=== PATIENT | male | born 1945 | race Caucasian/White ===

== ENCOUNTER 2019-11-05 04:24 | Inpatient (IN) | payer MEDICARE, OTHER ==
[~2019-11-05] VITALS: Ht 180.3 cm; Wt 67.4 kg
[2019-11-05] MEDS ORDERED: methylPREDNISolone SOD SUCC 125 MG/2 ML VL IV ONE (05:00)
[2019-11-05] MEDS ORDERED: IPRATROPIUM BROM 0.5 MG/2.5ML INH SOL NEB ONE (05:00)
[2019-11-05 05:17] LABS: Basophils # (auto) 0.1 10 ^3/uL (0-0.2); Basophils % (auto) 0.8 % (0.0-2.0); Eosinophils # (auto) 0.5 10 ^3/uL (0-0.8); Eosinophils % (auto) 5.4 % (0.0-7.0); Hematocrit 43.8 % (41.0-53.0); Hemoglobin 14.5 g/dL (13.5-17.5); Lymphocytes # (auto) 1.7 10 ^3/uL (0.4-5.4); Lymphocytes % (auto) 17.6 % (10.0-50.0); Mean Corpuscular Hemoglobin 29.1 pg (28.0-32.0); Mean Corpuscular Hgb Conc. 33.1 g/dL (32.0-36.0); Monocytes # (auto) 0.6 10 ^3/uL (0-1.3); Monocytes % (auto) 6.2 % (0.0-12.0); Neutrophils # (auto) 6.7 10 ^3/uL (1.6-8.6); Platelet Count (auto) 269 10^3/uL (140-450); Red Blood Cells 4.98 10^6/uL (4.5-5.90); Red Cell Distribution Width 13.4 % (11.8-14.3); White Blood Cell 9.5 10^3/uL (4.4-10.8)
[2019-11-05 05:34] LABS: INR 0.97 (0.9-1.15); Partial Thromboplastin Time 23.8 sec (23.64-32.05)
[2019-11-05 05:35] LABS: Albumin 3.3 g/dL (3.4-5.0); Anion Gap 9 (5-15); Blood Urea Nitrogen 23 mg/dL (7-18); Carbon Dioxide 26 mmol/L (21-32); Chloride 100 mmol/L (98-107); Glucose 303 mg/dL (74-106); Magnesium 2.3 mg/dL (1.6-2.6); Potassium 4.1 mmol/L (3.5-5.1); Sodium 135 mmol/L (136-145)
[2019-11-05 05:36] LABS: Lactic Acid w/Reflex 2.7 mmol/L (0.4-2.0)
[2019-11-05 05:39] LABS: Alanine Aminotransferase 23 U/L (16-61); Alkaline Phosphatase 141 U/L (45-117); Aspartate Aminotransferase 17 U/L (15-37); BUN/Creatinine Ratio 26.1; Bilirubin, Total 0.4 mg/dL (0.2-1.0); GFR African American 109 mL/min; GFR Non-African American 90 mL/min; Lactate Dehydrogenase 118 U/L (87-241); Total Protein 7.7 g/dL (6.4-8.2)
[2019-11-05] MEDS ORDERED: SODIUM CHLORIDE 0.9% 1,000 ML IV ONE (06:15)
[2019-11-05] MEDS ORDERED: levoFLOXacin 750MG 150 ML IV ONE (06:15)
[2019-11-05 06:57] LABS: CRP High Sensitivity 4.2 mg/dL (< 0.3)
[2019-11-05] MEDS ORDERED: ONDANSETRON HCL 4 MG/2 ML VIAL IV PRN (07:15)
[2019-11-05] MEDS ORDERED: TEMAZEPAM 15 MG CAP PO PRN (07:15)
[2019-11-05] MEDS ORDERED: NITROGLYCERIN 0.4 MG SL TAB SL PRN (07:15)
[2019-11-05] MEDS ORDERED: MORPHINE SULF INJ 2 MG/ML SYRINGE 1ML IV PRN ×2 (07:15→13:45)
[2019-11-05] MEDS ORDERED: ACETAMINOPHEN 325 MG TAB PO PRN (07:15)
[2019-11-05 08:30] VITALS: BP 137/89
[2019-11-05 09:11] VITALS: BP 137/89
--- NOTE | 2019-11-05 09:11 | NUR ---
Telemetry admit from ER NOMAN MORENO admitted to Telemetry unit after SBAR received. Patient oriented to RICHARD ALCANTAR, primary RN, unit, room, bed, and unit policies regarding patient care and visiting hours. Patient now on continuous telemetry monitoring, tele box # 9 and telemetry reading on arrival to unit is SR. Patient placed on bedside oxygen, weighed by bedscale and encouraged to call if they need something. All questions and concerns addressed, patient verbalized understanding.
[2019-11-05 09:55] VITALS: BP 145/79
[2019-11-05] MEDS ORDERED: methylPREDNISolone SOD SUCC 125 MG/2 ML VL IV SCH (10:00)
[2019-11-05] MEDS ORDERED: CHOLECALCIFEROL (VITD3) 1,000UNIT=25mCg TAB PO SCH (10:00)
[2019-11-05] MEDS ORDERED: ZINC SULFATE 220mg CAP or TAB PO SCH (10:00)
[2019-11-05] MEDS ORDERED: ASCORBIC ACID 1,000 MG TAB PO SCH (10:00)
[2019-11-05] MEDS: FAMOTIDINE 20 MG TAB PO SCH ×2 (11:19→22:53)
[2019-11-05] MEDS: ENOXAPARIN SOD 40 MG/0.4 ML SYRINGE SC SCH (11:19)
[2019-11-05] MEDS: NIFEdipine ER 30 MG TAB PO SCH (11:20)
[2019-11-05] MEDS: DOXYCYCLINE 100MG/250ML 250 ML IV SCH ×2 (11:22→22:52)
[2019-11-05 12:30] VITALS: BP 140/92
[2019-11-05] MEDS ORDERED: DEXTROSE (50%) 50ML SYRG IV PRN (13:15)
[2019-11-05] MEDS: cefTRIAXone 1GM/50ML D5W 50 ML IV SCH (13:26)
[2019-11-05] MEDS ORDERED: ACETAMINOPHEN 500 MG TAB PO PRN (13:45)
[2019-11-05] MEDS ORDERED: HYDROcodone-ACET 5/325MG TAB PO PRN (13:45)
[2019-11-05] MEDS ORDERED: ALBUTEROL SULF HFA 90MCG INH 200DOSE IN SCH (14:00)
[2019-11-05] MEDS: IPRATROPIUM BROM 0.5 MG/2.5ML INH SOL NEB PRN ×2 (16:02→20:33)
[2019-11-05] MEDS: ALBUTEROL SULF 2.5 MG/0.5ML(0.5%) NEB SOLN NEB PRN ×2 (16:02→20:32)
[2019-11-05 17:40] VITALS: BP 126/78
--- NOTE | 2019-11-05 17:50 | NUR ---
Received patient from [facility] via wheelchair Patient transferred to bed. Patient alert and oriented, no s/s of distress or sob. Bed locked in lowest position, side rails up x2, call light within reach. Will continue to monitor.
[2019-11-05] MEDS: ACCU-CHEK COMFORT CURVE STRIP VI SCH ×2 (18:16→22:54)
[2019-11-05] MEDS: InsuLIN REG 1unit/0.01ml Soln (100units/ml) SC SCH ×2 (18:17→23:07)
[2019-11-05] MEDS ORDERED: IOHEXOL 350 MG/ML 100ML IJ ONE ×2 (18:52→20:39)
--- NOTE | 2019-11-05 21:10 | NUR ---
Sent patient to CT. Unable to complete at this time, due to machine not working. Was advised by Tadeo from CT, CT scan will be done in the morning 11/06/2019. Will continue to monitor patient.
[2019-11-05 22:00] VITALS: BP 127/76
[2019-11-06] VITALS (7 sets, daily range): BP systolic 99–119; BP diastolic 61–73
--- NOTE | 2019-11-06 00:43 | NUR ---
Janes Alegria hospitalist of patient requesting cough medication. Awaiting call back or orders.
--- NOTE | 2019-11-06 00:55 | NUR ---
Received orders for cough by hospitalist. Will carry out.
--- NOTE | 2019-11-06 01:48 | NUR ---
During rounding, observed patient is afib on monitor. Confirmed with Photographic Editor Nathaly heart rhythm and rhythm is non sustained 80-130's heart rate, stays mostly in low 100's. Performed vitals: 105/64 bp, 81hr, 97.5 temp, 18 respiratory, 97 o2. Performed EKG and results is atrial fibrillation. Spoke to [facility] and notified him of heart rhythm and rhythm is non sustained 80-130's heart rate, stays mostly in low 100's / vitals: 105/64 bp, 81hr, 97.5 temp, 18 respiratory, 97 o2 / EKG results atrial fibrillation hr 103. [facility] physically reviewed ekg printout and signed it at 0147. [facility] hospitalist gave order to put order in for cardiology consult for new onset of afib, and to continue to monitor heart rate, and blood pressure. read back and confirmed. Addendum: 11/06/19 at 0200 by Paul Gonzalez RN patient verbalizes denial of any SOB, pain, chest pain, or any type of distress at this time. Patient states "I feel fine".
[2019-11-06] MEDS: guaiFENesin-DM 100/10mg/5ml SYR PO PRN ×5 (02:03→22:48)
--- NOTE | 2019-11-06 02:17 | NUR ---
patient verbalizes denial of any SOB, pain, chest pain, or any type of distress at this time. Patient states "I feel ok, i just want to sleep".
[2019-11-06 05:47] LABS: Basophils # (auto) 0 10 ^3/uL (0-0.2); Basophils % (auto) 0.2 % (0.0-2.0); Eosinophils # (auto) 0 10 ^3/uL (0-0.8); Hematocrit 40.1 % (41.0-53.0); Hemoglobin 13.4 g/dL (13.5-17.5); Lymphocytes # (auto) 1.2 10 ^3/uL (0.4-5.4); Lymphocytes % (auto) 11.5 % (10.0-50.0); Mean Corpuscular Hemoglobin 29.2 pg (28.0-32.0); Mean Corpuscular Hgb Conc. 33.5 g/dL (32.0-36.0); Mean Corpuscular Volume 87.2 fL (80.0-100.0); Monocytes # (auto) 0.9 10 ^3/uL (0-1.3); Monocytes % (auto) 7.9 % (0.0-12.0); Neutrophils # (auto) 8.7 10 ^3/uL (1.6-8.6); Neutrophils % (auto) 80.4 % (37.0-80.0); Nucleated Red Blood Cells % 0.1 %; Platelet Count (auto) 279 10^3/uL (140-450); Red Cell Distribution Width 13.6 % (11.8-14.3); White Blood Cell 10.9 10^3/uL (4.4-10.8)
[2019-11-06 06:06] LABS: Potassium 4.1 mmol/L (3.5-5.1)
[2019-11-06] MEDS: ALBUTEROL SULF 2.5 MG/0.5ML(0.5%) NEB SOLN NEB SCH ×3 (06:11→19:40)
[2019-11-06] MEDS: IPRATROPIUM BROM 0.5 MG/2.5ML INH SOL NEB SCH ×3 (06:11→19:40)
[2019-11-06 06:14] LABS: Albumin 2.9 g/dL (3.4-5.0); BUN/Creatinine Ratio 39.1; Bilirubin, Total 0.4 mg/dL (0.2-1.0); Calcium 8.7 mg/dL (8.5-10.1); Total Protein 6.8 g/dL (6.4-8.2)
[2019-11-06] MEDS: ACCU-CHEK COMFORT CURVE STRIP VI SCH ×4 (06:23→21:03)
[2019-11-06] MEDS: InsuLIN REG 1unit/0.01ml Soln (100units/ml) SC SCH ×4 (06:23→22:00)
--- NOTE | 2019-11-06 07:50 | NUR ---
Opening Shift Note Assumed care of patient, awake and alert, sitting up in chair next to bed eating breakfast. Patient took off his NC and when asked about it pt states, "its difficult to eat with it", advised to put it back on when he finished breakfast, or as needed. No S/S of distress/SOB or pain. Instructed on POC and to call for assist PRN, will continue to monitor for changes Q1hr and PRN. Signed: 11/06/19 at 1005 by KENDY YEE <Co-Signature Required> Co-Signed: 11/06/19 at 1005 by Melissa Hatch RN
[2019-11-06] MEDS: FAMOTIDINE 20 MG TAB PO SCH ×2 (09:05→21:03)
[2019-11-06] MEDS: ENOXAPARIN SOD 40 MG/0.4 ML SYRINGE SC SCH (09:05)
[2019-11-06] MEDS: cefTRIAXone 1GM/50ML D5W 50 ML IV SCH (09:05)
[2019-11-06] MEDS: NIFEdipine ER 30 MG TAB PO SCH (09:11)
--- NOTE | 2019-11-06 09:55 | NUR ---
Per Tele monitor, patient had a run of AFIB, they will send Tele strips to [facility] [place]. Will notify . Addendum: 11/06/19 at 1257 by Melissa Hatch RN WRONG PATIENT. PLEASE DISREGARD NOTE.
--- NOTE | 2019-11-06 10:20 | NUR ---
DR. STORM AT BEDSIDE. UPDATED PATIENT'S ON POC VIA TELEPHONE CALL.
[2019-11-06] MEDS: DOXYCYCLINE 100MG/250ML 250 ML IV SCH ×2 (10:35→21:03)
--- NOTE | 2019-11-06 10:38 | NUR ---
Collected Urine sample. Sent to lab via [employer] system.
[2019-11-06 10:52] LABS: Urine Bacteria NONE SEEN /hpf (None Seen); Urine Blood Negative /uL (Negative); Urine Mucus FEW (None Seen); Urine WBC <1 /hpf (0 - 3)
[2019-11-06 11:00] LABS: Urine Specific Gravity > 1.050 (1.001-1.035)
[2019-11-06] MEDS ORDERED: ACETYLCYSTEINE 10 %(100MG/ML) SOL 4ML NEB SCH (14:00)
[2019-11-06] MEDS ORDERED: FLUT230A2 IN (14:08)
[2019-11-06] MEDS ORDERED: ALBU0.084 NEB (14:09)
[2019-11-06] MEDS ORDERED: ALBUAER3 IN (14:10)
[2019-11-06] MEDS ORDERED: ACET-1079 PO (14:17)
[2019-11-06] MEDS ORDERED: ASPI325T4 PO (14:18)
[2019-11-06] MEDS ORDERED: [UNRECOGNIZED DRUG - CODE] PO (14:20)
[2019-11-06] MEDS ORDERED: LOSA25TA38 PO (14:21)
[2019-11-06] MEDS ORDERED: CITA-73 PO (14:23)
[2019-11-06] MEDS ORDERED: ATOR40TA52 PO (14:25)
[2019-11-06] MEDS ORDERED: SUCR1TAB22 OR (14:26)
[2019-11-06] MEDS ORDERED: NIFE1TAB30 PO (14:28)
[2019-11-06] MEDS ORDERED: METF-370 PO (14:28)
[2019-11-06] MEDS ORDERED: FER325T PO (14:29)
--- NOTE | 2019-11-06 16:05 | NUR ---
Patient c/o headache, rates it 09/09. Medicated patient with Tylenol 500 mg PO. Will continue to monitor PRN.
--- NOTE | 2019-11-06 18:47 | NUR ---
closing note Patient is comfortably sitting up in bed, on 2L NC. Breath sounds even and unlabored. No c/o pain. No s/s of distress/sob noted/stated. Bed at lowest locked position and call light within reach. Will endorse care to NOC RN.
[2019-11-06] MEDS: ACETYLCYSTEINE 10 %(100MG/ML) SOL 4ML NEB SCH ×2 (19:40→23:44)
[2019-11-06] MEDS: IPRATROPIUM BROM 0.5 MG/2.5ML INH SOL NEB PRN (23:44)
[2019-11-06] MEDS: ALBUTEROL SULF 2.5 MG/0.5ML(0.5%) NEB SOLN NEB PRN (23:44)
[2019-11-07] MEDS: guaiFENesin-DM 100/10mg/5ml SYR PO PRN ×4 (04:05→21:07)
[2019-11-07 05:21] VITALS: BP 137/93
[2019-11-07] MEDS: IPRATROPIUM BROM 0.5 MG/2.5ML INH SOL NEB SCH ×4 (06:07→18:56)
[2019-11-07] MEDS: ALBUTEROL SULF 2.5 MG/0.5ML(0.5%) NEB SOLN NEB SCH ×4 (06:07→18:56)
[2019-11-07] MEDS: ACETYLCYSTEINE 10 %(100MG/ML) SOL 4ML NEB SCH ×4 (06:08→18:57)
[2019-11-07] MEDS: ACCU-CHEK COMFORT CURVE STRIP VI SCH ×4 (06:24→21:06)
[2019-11-07] MEDS: InsuLIN REG 1unit/0.01ml Soln (100units/ml) SC SCH ×4 (06:25→21:17)
--- NOTE | 2019-11-07 08:00 | NUR ---
Opening Shift Note Assumed care of patient, awake and alert. No S/S of distress/SOB or pain. Patient on O2 at 2lpm/nasal cannula continuously administered. Instructed on POC and to call for assist PRN, will continue to monitor for changes Q1hr and PRN.
[2019-11-07 08:38] VITALS: BP 116/80
[2019-11-07] MEDS: DOXYCYCLINE 100 MG TAB/CAP PO SCH ×2 (09:26→21:06)
[2019-11-07] MEDS: cefTRIAXone 1GM/50ML D5W 50 ML IV SCH (09:26)
[2019-11-07] MEDS: ENOXAPARIN SOD 40 MG/0.4 ML SYRINGE SC SCH (09:26)
[2019-11-07] MEDS: FAMOTIDINE 20 MG TAB PO SCH ×2 (09:27→21:05)
[2019-11-07] MEDS: NIFEdipine ER 30 MG TAB PO SCH (09:27)
[2019-11-07 12:57] VITALS: BP 119/78
[2019-11-07 16:45] VITALS: BP 104/69
--- NOTE | 2019-11-07 17:30 | NUR ---
IV insertion IV access obtained, via clean sterile technique by inserting 20 gauge catheter at left forearm after one attempt. IV secured properly. No trauma to site. Patient tolerated well.
[2019-11-07 22:00] VITALS: BP 112/57
--- NOTE | 2019-11-08 04:10 | NUR ---
SOB PATIENT WOKE UP SOB REQUESTING BREATHING TREATMENT. PLACED PATIENT ON O2 2LNC. PAGED RT FOR BREATHING TREATMENT.
[2019-11-08] MEDS: ALBUTEROL SULF 2.5 MG/0.5ML(0.5%) NEB SOLN NEB PRN (04:20)
[2019-11-08] MEDS: IPRATROPIUM BROM 0.5 MG/2.5ML INH SOL NEB PRN (04:20)
[2019-11-08 05:25] VITALS: BP 103/69
[2019-11-08] MEDS: ACCU-CHEK COMFORT CURVE STRIP VI SCH ×2 (05:30→12:26)
[2019-11-08] MEDS: InsuLIN REG 1unit/0.01ml Soln (100units/ml) SC SCH ×2 (05:58→12:26)
[2019-11-08] MEDS: IPRATROPIUM BROM 0.5 MG/2.5ML INH SOL NEB SCH ×3 (05:59→18:46)
[2019-11-08] MEDS: ALBUTEROL SULF 2.5 MG/0.5ML(0.5%) NEB SOLN NEB SCH ×3 (05:59→18:46)
[2019-11-08] MEDS: ACETYLCYSTEINE 10 %(100MG/ML) SOL 4ML NEB SCH ×3 (05:59→18:46)
--- NOTE | 2019-11-08 07:30 | NUR ---
Opening Note Assumed patient care from GISELLE RN.
[2019-11-08 08:53] VITALS: BP 103/69
[2019-11-08 08:57] VITALS: BP 107/60
[2019-11-08] MEDS: DOXYCYCLINE 100 MG TAB/CAP PO SCH (09:32)
[2019-11-08] MEDS: FAMOTIDINE 20 MG TAB PO SCH (09:32)
[2019-11-08] MEDS: cefTRIAXone 1GM/50ML D5W 50 ML IV SCH (09:32)
[2019-11-08] MEDS: NIFEdipine ER 30 MG TAB PO SCH (09:33)
[2019-11-08] MEDS: guaiFENesin-DM 100/10mg/5ml SYR PO PRN (09:33)
[2019-11-08] MEDS: ENOXAPARIN SOD 40 MG/0.4 ML SYRINGE SC SCH (09:37)
--- NOTE | 2019-11-08 12:00 | NUR ---
at station New orders per Dr. Bates, patient to be discharged.
--- NOTE | 2019-11-08 12:11 | NUR ---
Nutrition Assessment Notes please see attached link for complete assessment Est Energy needs IBW: 7010-1769 kcals (25-30 kcal/kgBW), Est Protein needs: 78-93 gm/day (1.0-1.2 gm/kg IBW). Will continue to monitor and reassess prn. Addendum: 11/08/19 at [address] Amended: Links added.
[2019-11-08] MEDS ORDERED: METF-372 PO (12:24)
[2019-11-08] MEDS ORDERED: DOX100T PO (12:24)
[2019-11-08] MEDS ORDERED: CANA300T OR (12:24)
[2019-11-08 12:44] VITALS: BP 103/73
[2019-11-08 14:04] VITALS: BP 103/73
--- NOTE | 2019-11-08 16:55 | NUR ---
Discharge Discharge instructions given as ordered. Encourage to follow up with PMD as instructed. All questions and concerns addressed. Patient verbalized understanding. Medication reconciliation form completed and copy given to patient. IV removed with catheter intact, pressure dressing applied. Telemetry unit returned to ICU. Patient taken to vehicle with all personal belongings, accompanied by staff. No distress noted at time of departure.
== END 2019-11-08 16:33 | disposition home or self-care (01) | DRG 193 ==
LOC: EDBD 04:24 → ER 04:24 → TELE 04:25 → TELE-EAST 09:41 → TELE-CENTR 17:50
PROVIDERS: ADMIT Nurse Practitioner; ATTEND Internal Medicine
DX: J12.9 Viral pneumonia, unspecified (principal); J96.20 Acute and chronic respiratory failure, unspecified whether with hypoxia or hypercapnia; J44.1 Chronic obstructive pulmonary disease with (acute) exacerbation; J45.901 Unspecified asthma with (acute) exacerbation; J44.0 Chronic obstructive pulmonary disease with (acute) lower respiratory infection; J20.8 Acute bronchitis due to other specified organisms; E86.0 Dehydration; E11.9 Type 2 diabetes mellitus without complications; I10 Essential (primary) hypertension; Z03.818 Encounter for observation for suspected exposure to other biological agents ruled out; Z79.84 Long term (current) use of oral hypoglycemic drugs
CPT/HCPCS: 36415; 71045; 71275; 80053; 81001; 82728; 82962; 83036; 83605; 83615; 83735; 83880; 84443; 84484; 85025; 85379; 85610; 85730; 86141; 87040; 87070; 87804; 87880; 93005; 94640; 96365; 96375; G0378; J0696; J1815; J1956; J3490

== ENCOUNTER 2020-06-09 12:02 | Emergency (ER) | payer MEDICARE, OTHER ==
[~2020-06-09] VITALS: Ht 177.8 cm; Wt 68.0 kg
[~2020-06-09 12:02] MED LIST: ACET-1079 PO; ALBU0.084 NEB; ALBUAER3 IN; ATOR40TA52 PO; CANA300T OR; CITA-73 PO; DOX100T PO; FER325T PO; FLUT230A2 IN; LOSA25TA38 PO; METF-372 PO; NIFE1TAB30 PO
[2020-06-09 12:56] LABS: Basophils # (auto) 0.1 10 ^3/uL (0-0.2); Eosinophils # (auto) 0.3 10 ^3/uL (0-0.8); Eosinophils % (auto) 3.2 % (0.0-7.0); Hematocrit 48.3 % (41.0-53.0); Lymphocytes # (auto) 1.6 10 ^3/uL (0.4-5.4); Lymphocytes % (auto) 18.7 % (10.0-50.0); Mean Corpuscular Hemoglobin 30.2 pg (28.0-32.0); Mean Corpuscular Hgb Conc. 33.2 g/dL (32.0-36.0); Mean Corpuscular Volume 91.1 fL (80.0-100.0); Monocytes # (auto) 0.7 10 ^3/uL (0-1.3); Neutrophils # (auto) 5.9 10 ^3/uL (1.6-8.6); Neutrophils % (auto) 69.1 % (37.0-80.0); Nucleated Red Blood Cells % 0.1 %; Platelet Count (auto) 287 10^3/uL (140-450); Red Blood Cells 5.31 10^6/uL (4.5-5.90); Red Cell Distribution Width 14.3 % (11.8-14.3); White Blood Cell 8.5 10^3/uL (4.4-10.8)
[2020-06-09 13:12] LABS: Albumin 3.1 g/dL (3.4-5.0); Calcium 8.7 mg/dL (8.5-10.1); Potassium 4.4 mmol/L (3.5-5.1)
[2020-06-09 13:18] LABS: Bilirubin, Total 0.3 mg/dL (0.2-1.0); Total Protein 7.2 g/dL (6.4-8.2)
[2020-06-09] MEDS ORDERED: ALBUTEROL SULF 2.5 MG/0.5ML(0.5%) NEB SOLN HHN STA (15:58)
[2020-06-09] MEDS ORDERED: IPRATROPIUM BROM 0.5 MG/2.5ML INH SOL NEB ONE (16:00)
[2020-06-09 17:45] LABS: Urine Bacteria NONE SEEN /hpf (None Seen); Urine Blood Negative /uL (Negative); Urine Mucus FEW (None Seen); Urine Specific Gravity 1.032 (1.001-1.035); Urine WBC 2 /hpf (0 - 3)
[2020-06-09 18:25] VITALS: BP 126/76
== END 2020-06-09 18:36 | disposition home or self-care (01) ==
LOC: EDBD 12:02 → ER 12:02
DX: J44.1 Chronic obstructive pulmonary disease with (acute) exacerbation (principal); E46 Unspecified protein-calorie malnutrition; E11.9 Type 2 diabetes mellitus without complications; I10 Essential (primary) hypertension; Z87.891 Personal history of nicotine dependence
CPT/HCPCS: 36415; 71045; 80053; 81001; 84484; 85025; 87426; 94640; 99285; C9803; J7644; U0003

== ENCOUNTER → 2020-07-07 | Outpatient (CLI) | payer MEDICARE, OTHER ==
[~2020-07-07] VITALS: Ht 177.8 cm; Wt 68.0 kg
[~2020-07-07] MED LIST changes: +ADENOSINE 57 MG in GIVE UN-DILUTED 0 ML IV ONE; +ADENOSINE 90 MG/30 ML INJ IV ONE
== END | disposition home or self-care (01) ==
LOC: Rad HDHVI 13:14
PROVIDERS: ATTEND Internal Medicine Cardiovascular Disease
DX: I08.0 Rheumatic disorders of both mitral and aortic valves (principal); J44.9 Chronic obstructive pulmonary disease, unspecified; E11.9 Type 2 diabetes mellitus without complications; E46 Unspecified protein-calorie malnutrition; I10 Essential (primary) hypertension; E78.00 Pure hypercholesterolemia, unspecified; R07.9 Chest pain, unspecified; Z87.891 Personal history of nicotine dependence
CPT/HCPCS: 78452; 82962; 93005; 96374; 96375; A9500; J0153

== ENCOUNTER 2021-07-15 10:32 | Emergency (ER) | payer MEDICARE, OTHER ==
[~2021-07-15] VITALS: Ht 180.3 cm; Wt 83.9 kg
[~2021-07-15 10:32] MED LIST changes: -ADENOSINE 57 MG in GIVE UN-DILUTED 0 ML IV ONE; -ADENOSINE 90 MG/30 ML INJ IV ONE
[2021-07-15] MEDS ORDERED: methylPREDNISolone SOD SUCC 125 MG/2 ML VL IV ONE (10:45)
[2021-07-15 11:33] LABS: Basophils # (auto) 0.1 10 ^3/uL (0-0.2); Eosinophils # (auto) 0.4 10 ^3/uL (0-0.8); Eosinophils % (auto) 4.7 % (0.0-7.0); Hematocrit 48.2 % (41.0-53.0); Hemoglobin 16.3 g/dL (13.5-17.5); Lymphocytes # (auto) 2.9 10 ^3/uL (0.4-5.4); Lymphocytes % (auto) 30.1 % (10.0-50.0); Mean Corpuscular Hemoglobin 30.2 pg (28.0-32.0); Mean Corpuscular Hgb Conc. 33.7 g/dL (32.0-36.0); Mean Corpuscular Volume 89.4 fL (80.0-100.0); Monocytes # (auto) 0.7 10 ^3/uL (0-1.3); Monocytes % (auto) 7.3 % (0.0-12.0); Neutrophils # (auto) 5.4 10 ^3/uL (1.6-8.6); Neutrophils % (auto) 56.9 % (37.0-80.0); Nucleated Red Blood Cells % 0.1 %; Red Blood Cells 5.39 10^6/uL (4.5-5.90); Red Cell Distribution Width 14.2 % (11.8-14.3); White Blood Cell 9.5 10^3/uL (4.4-10.8)
[2021-07-15 11:47] LABS: Partial Thromboplastin Time 27.9 sec (23.6-33.0)
[2021-07-15 12:42] LABS: BUN/Creatinine Ratio 20.6; Bilirubin, Total 0.5 mg/dL (0.2-1.0); Calcium 9.5 mg/dL (8.5-10.1); Total Protein 8.4 g/dL (6.4-8.2)
[2021-07-15 14:51] VITALS: BP 149/80
[2021-07-15] MEDS ORDERED: METH4PAK PO (16:35)
[2021-07-15 16:38] LABS: Urine Bacteria FEW /hpf (None Seen); Urine Blood Negative /uL (Negative); Urine Hyaline Cast FEW /lpf (0 - 2); Urine Specific Gravity 1.033 (1.001-1.035); Urine WBC 2 /hpf (0 - 3)
== END 2021-07-15 17:29 | disposition home or self-care (01) ==
LOC: ER 10:32 → EDBD 10:32 → ER 17:29
DX: J44.1 Chronic obstructive pulmonary disease with (acute) exacerbation (principal); E11.9 Type 2 diabetes mellitus without complications; I10 Essential (primary) hypertension
CPT/HCPCS: 36415; 71045; 80053; 81001; 83880; 84484; 85025; 85610; 85730; 96374; 99284; J2930

== ENCOUNTER → 2021-07-16 | Outpatient (CLI) | payer MEDICARE, OTHER ==
[~2021-07-16] MED LIST changes: +METH4PAK PO
[2021-07-16 11:43] VITALS: BP 120/74
[2021-07-16 12:32] VITALS: BP 115/76
== END | disposition home or self-care (01) ==
LOC: CHF HDHVI 11:53
PROVIDERS: ATTEND Internal Medicine Cardiovascular Disease
DX: J44.9 Chronic obstructive pulmonary disease, unspecified (principal); E11.9 Type 2 diabetes mellitus without complications; R06.02 Shortness of breath
CPT/HCPCS: 94618; 94640; G0463

== ENCOUNTER 2021-10-23 10:14 | Inpatient (IN) | payer MEDICARE, OTHER ==
[~2021-10-23] VITALS: Ht 180.3 cm; Wt 79.5 kg
[2021-10-23 11:26] LABS: Basophils # (auto) 0.1 10 ^3/uL (0-0.2); Basophils % (auto) 0.9 % (0.0-2.0); Eosinophils # (auto) 0 10 ^3/uL (0-0.8); Hematocrit 40.6 % (41.0-53.0); Hemoglobin 13.5 g/dL (13.5-17.5); Lymphocytes # (auto) 2.1 10 ^3/uL (0.4-5.4); Mean Corpuscular Hemoglobin 29.8 pg (28.0-32.0); Mean Corpuscular Hgb Conc. 33.3 g/dL (32.0-36.0); Mean Corpuscular Volume 89.5 fL (80.0-100.0); Monocytes # (auto) 0.7 10 ^3/uL (0-1.3); Monocytes % (auto) 5.7 % (0.0-12.0); Neutrophils # (auto) 10.1 10 ^3/uL (1.6-8.6); Neutrophils % (auto) 77.4 % (37.0-80.0); Red Blood Cells 4.53 10^6/uL (4.5-5.90); Red Cell Distribution Width 13.2 % (11.8-14.3); White Blood Cell 13.1 10^3/uL (4.4-10.8)
[2021-10-23] MEDS ORDERED: SODIUM CHLORIDE 0.9% 1,000 ML IV ONE (11:30)
[2021-10-23] MEDS ORDERED: diphenhdrAMINE HCL 50 MG/1 ML VL IV ONE (11:30)
[2021-10-23] MEDS ORDERED: SODIUM CHLORIDE 0.9% 500 ML IVB ONE (11:30)
[2021-10-23] MEDS ORDERED: MORPHINE SULFATE 4 MG/ML SYR/VIAL IV ONE (11:30)
[2021-10-23 11:31] LABS: Albumin 3.5 g/dL (3.4-5.0); Calcium 9.6 mg/dL (8.5-10.1); Potassium 4.6 mmol/L (3.5-5.1)
[2021-10-23 11:33] LABS: BUN/Creatinine Ratio 25.2
[2021-10-23 11:44] LABS: Bilirubin, Total 0.2 mg/dL (0.2-1.0); Total Protein 7.4 g/dL (6.4-8.2)
[2021-10-23] MEDS ORDERED: ONDANSETRON HCL 4 MG/2 ML VIAL IV ONE (11:45)
[2021-10-23] MEDS ORDERED: LABETALOL HCL 5 MG/ML 4ML SYRINGE IV ONE (12:15)
[2021-10-23] MEDS ORDERED: cefTRIAXone 1GM/50ML D5W 50 ML IV ONE (12:15)
[2021-10-23] MEDS ORDERED: AZITHROMYCIN 500MG/ 250ML 250 ML IV ONE (12:15)
[2021-10-23 13:35] LABS: Lactic Acid w/Reflex 2.7 mmol/L (0.4-2.0)
[2021-10-23 14:00] LABS: Urine Bacteria NONE SEEN /hpf (None Seen); Urine Blood Negative /uL (Negative); Urine Specific Gravity 1.024 (1.001-1.035); Urine WBC <1 /hpf (0 - 3)
[2021-10-23] MEDS ORDERED: NITROGLYCERIN 0.4 MG SL TAB SL PRN (14:30)
[2021-10-23] MEDS ORDERED: MORPHINE SULFATE INJECTION 2 MG/ML SYRG IV PRN ×2 (14:30→17:00)
[2021-10-23] MEDS ORDERED: IOHEXOL 350 MG/ML 100ML IJ ONE (14:46)
[2021-10-23] MEDS ORDERED: ACETAMINOPHEN 325 MG TAB PO PRN (17:00)
[2021-10-23] MEDS ORDERED: levoFLOXacin 500MG 100 ML IV ONE (17:00)
[2021-10-23] MEDS ORDERED: ONDANSETRON HCL 4 MG/2 ML VIAL IV PRN (17:00)
[2021-10-23] MEDS ORDERED: DOCUSATE SOD 100 MG CAP PO PRN (17:00)
[2021-10-23] MEDS ORDERED: DEXTROSE (50%) 50ML SYRG IV PRN (17:00)
[2021-10-23] MEDS: ACCU-CHEK COMFORT CURVE STRIP VI SCH ×2 (17:00→22:19)
[2021-10-23] MEDS ORDERED: hydrALAZINE HCL 20 MG/ML VL IV PRN (17:00)
[2021-10-23] MEDS ORDERED: LORazepam 0.5 MG TAB PO PRN (17:00)
[2021-10-23] MEDS ORDERED: IPRATROPIUM BROM 0.5 MG/2.5ML INH SOL NEB SCH (18:00)
[2021-10-23] MEDS: InsuLIN REG 1unit/0.01ml Soln (100units/ml) SC SCH ×2 (19:09→22:50)
[2021-10-23 20:19] LABS: INR 1.05 (0.9-1.15); Partial Thromboplastin Time 22.8 sec (23.6-33.0)
[2021-10-23 20:56] LABS: Magnesium 1.5 mg/dL (1.6-2.6); Phosphorus 3.2 mg/dL (2.5-4.90)
[2021-10-23 22:00] VITALS: BP 146/84
[2021-10-23] MEDS ORDERED: BUDESONIDE (INHALATION) 0.5 MG/2 ML NEB NEB SCH (22:00)
[2021-10-23] MEDS: ATORVASTATIN 20 MG TAB PO SCH (22:19)
[2021-10-23] MEDS: methylPREDNISolone SOD SUCC 40 MG/ML VL IV SCH (22:20)
[2021-10-23 23:08] VITALS: BP 146/84
[2021-10-24 05:00] VITALS: BP 154/90
[2021-10-24] MEDS: methylPREDNISolone SOD SUCC 40 MG/ML VL IV SCH ×3 (05:53→21:46)
[2021-10-24 06:34] LABS: Basophils # (auto) 0.1 10 ^3/uL (0-0.2); Basophils % (auto) 0.7 % (0.0-2.0); Eosinophils # (auto) 0 10 ^3/uL (0-0.8); Hemoglobin 13.7 g/dL (13.5-17.5); Lymphocytes % (auto) 9.3 % (10.0-50.0); Mean Corpuscular Hemoglobin 30.9 pg (28.0-32.0); Mean Corpuscular Hgb Conc. 34.3 g/dL (32.0-36.0); Mean Corpuscular Volume 89.9 fL (80.0-100.0); Monocytes # (auto) 0.5 10 ^3/uL (0-1.3); Monocytes % (auto) 5.2 % (0.0-12.0); Neutrophils # (auto) 8.8 10 ^3/uL (1.6-8.6); Neutrophils % (auto) 84.8 % (37.0-80.0); Nucleated Red Blood Cells % 0.1 %; Red Blood Cells 4.44 10^6/uL (4.5-5.90); Red Cell Distribution Width 13.6 % (11.8-14.3); White Blood Cell 10.4 10^3/uL (4.4-10.8)
[2021-10-24 06:49] LABS: Partial Thromboplastin Time 25.1 sec (23.6-33.0)
[2021-10-24 06:53] LABS: Magnesium 1.8 mg/dL (1.6-2.6); Potassium 4.3 mmol/L (3.5-5.1)
[2021-10-24 07:05] LABS: Albumin 3.5 g/dL (3.4-5.0); BUN/Creatinine Ratio 27.6; Bilirubin, Total 0.6 mg/dL (0.2-1.0); CRP High Sensitivity 15.7 mg/dL (< 0.3); Calcium 9.3 mg/dL (8.5-10.1); Phosphorus 3.8 mg/dL (2.5-4.90); Total Protein 7.5 g/dL (6.4-8.2)
[2021-10-24] MEDS: ACCU-CHEK COMFORT CURVE STRIP VI SCH ×3 (07:16→17:26)
[2021-10-24] MEDS: InsuLIN REG 1unit/0.01ml Soln (100units/ml) SC SCH ×4 (07:16→22:00)
[2021-10-24 07:19] LABS: Thyroid Stimulating Hormone 0.87 uIU/mL (0.358-3.74)
[2021-10-24 08:53] VITALS: BP 104/80
[2021-10-24 08:55] VITALS: BP 158/86
[2021-10-24] MEDS: levoFLOXacin 500MG 100 ML IV SCH (10:00)
[2021-10-24] MEDS: NIFEdipine ER 30 MG TAB PO SCH (10:00)
[2021-10-24] MEDS: CITALOPRAM HYDROBR 20 MG TAB PO SCH (10:00)
[2021-10-24] MEDS: LOSARTAN POTASSIUM 25 MG TAB PO SCH (10:00)
[2021-10-24] MEDS: FERROUS SULFATE 325mg EC TAB PO SCH (10:00)
[2021-10-24] MEDS: FAMOTIDINE (10MG/ML) 2ML VL IV SCH (10:00)
[2021-10-24] MEDS: ASPirin 81 mg TAB PO SCH (10:00)
[2021-10-24] MEDS ORDERED: FUROSEMIDE 20 MG/2 ML VIAL IV ONE (10:30)
[2021-10-24] MEDS: HYDROcodone-ACET 5/325MG TAB PO PRN ×2 (12:39→21:44)
[2021-10-24 14:00] VITALS: BP 157/86
[2021-10-24 17:00] VITALS: BP 106/70
[2021-10-24] MEDS: ATORVASTATIN 20 MG TAB PO SCH (21:46)
[2021-10-24 22:00] VITALS: BP 119/57
[2021-10-25] MEDS: ACCU-CHEK COMFORT CURVE STRIP VI SCH ×5 (01:02→21:48)
[2021-10-25 05:00] VITALS: BP 121/74
[2021-10-25 05:28] LABS: Basophils # (auto) 0 10 ^3/uL (0-0.2); Basophils % (auto) 0.3 % (0.0-2.0); Eosinophils # (auto) 0.1 10 ^3/uL (0-0.8); Eosinophils % (auto) 0.4 % (0.0-7.0); Hematocrit 36.5 % (41.0-53.0); Hemoglobin 12.4 g/dL (13.5-17.5); Lymphocytes # (auto) 0.8 10 ^3/uL (0.4-5.4); Lymphocytes % (auto) 6.7 % (10.0-50.0); Mean Corpuscular Hemoglobin 31.6 pg (28.0-32.0); Monocytes # (auto) 0.9 10 ^3/uL (0-1.3); Monocytes % (auto) 7.3 % (0.0-12.0); Neutrophils # (auto) 10.4 10 ^3/uL (1.6-8.6); Neutrophils % (auto) 85.3 % (37.0-80.0); Nucleated Red Blood Cells % 0.1 %; Red Blood Cells 3.93 10^6/uL (4.5-5.90); Red Cell Distribution Width 13.7 % (11.8-14.3); White Blood Cell 12.2 10^3/uL (4.4-10.8)
[2021-10-25 05:42] LABS: INR 0.99 (0.9-1.15); Partial Thromboplastin Time 24.5 sec (23.6-33.0)
[2021-10-25 05:47] LABS: Albumin 3.2 g/dL (3.4-5.0); Magnesium 2.2 mg/dL (1.6-2.6); Potassium 4.2 mmol/L (3.5-5.1)
[2021-10-25 05:49] LABS: BUN/Creatinine Ratio 39.6
[2021-10-25 05:52] LABS: Bilirubin, Total 0.7 mg/dL (0.2-1.0); Phosphorus 2.8 mg/dL (2.5-4.90); Total Protein 7.1 g/dL (6.4-8.2)
[2021-10-25] MEDS: methylPREDNISolone SOD SUCC 40 MG/ML VL IV SCH ×2 (05:53→12:45)
[2021-10-25] MEDS: HYDROcodone-ACET 5/325MG TAB PO PRN (05:55)
[2021-10-25] MEDS: InsuLIN REG 1unit/0.01ml Soln (100units/ml) SC SCH ×4 (06:35→21:45)
[2021-10-25] MEDS: CITALOPRAM HYDROBR 20 MG TAB PO SCH (10:09)
[2021-10-25] MEDS: ASPirin 81 mg TAB PO SCH (10:09)
[2021-10-25] MEDS: FERROUS SULFATE 325mg EC TAB PO SCH (10:09)
[2021-10-25] MEDS: LOSARTAN POTASSIUM 25 MG TAB PO SCH (10:10)
[2021-10-25] MEDS: FAMOTIDINE (10MG/ML) 2ML VL IV SCH (10:10)
[2021-10-25] MEDS: NIFEdipine ER 30 MG TAB PO SCH (10:10)
[2021-10-25] MEDS: levoFLOXacin 500MG 100 ML IV SCH (10:11)
[2021-10-25 13:00] VITALS: BP 115/73
[2021-10-25] MEDS ORDERED: LIDOCAINE 5% TOPICAL PATCH TOP ONE (13:00)
[2021-10-25] MEDS: ALBUTEROL SULF 2.5 MG/0.5ML(0.5%) NEB SOLN NEB PRN (14:26)
[2021-10-25 17:00] VITALS: BP 125/74
[2021-10-25] MEDS: ATORVASTATIN 20 MG TAB PO SCH (21:44)
[2021-10-25 22:00] VITALS: BP 112/66
[2021-10-26 02:30] LABS: Urine Bacteria NONE SEEN /hpf (None Seen); Urine Blood Negative /uL (Negative); Urine Specific Gravity 1.032 (1.001-1.035); Urine WBC <1 /hpf (0 - 3)
[2021-10-26 02:32] LABS: Alcohol, Urine < 3.0 mg/dL (0-10); Amphetamine Screen, Urine NEGATIVE (NEGATIVE); Barbiturate Scree,Urine NEGATIVE (NEGATIVE); Benzodiazephine Screen, Urine NEGATIVE (NEGATIVE); Cannabinoid Screen, Urine NEGATIVE (NEGATIVE); Cocaine Screen, Urine NEGATIVE (NEGATIVE); Opiate Scree,Urine NEGATIVE (NEGATIVE); Phencyclidine Screen, Urine NEGATIVE (NEGATIVE)
[2021-10-26 05:00] VITALS: BP 134/76
[2021-10-26] MEDS ORDERED: dilTIAZem 25 MG/5 ML VIAL IV ONE (05:30)
[2021-10-26] MEDS: ACCU-CHEK COMFORT CURVE STRIP VI SCH ×4 (06:01→21:05)
[2021-10-26] MEDS: InsuLIN REG 1unit/0.01ml Soln (100units/ml) SC SCH ×4 (06:03→21:07)
[2021-10-26] MEDS: HYDROcodone-ACET 5/325MG TAB PO PRN (06:05)
[2021-10-26] MEDS ORDERED: DIGOXIN (250MCG/ML) 2 ML AMPULE IV ONE ×3 (06:45→11:30)
[2021-10-26 09:00] VITALS: BP 116/67
[2021-10-26 09:04] LABS: Basophils # (auto) 0.1 10 ^3/uL (0-0.2); Basophils % (auto) 0.8 % (0.0-2.0); Eosinophils # (auto) 0 10 ^3/uL (0-0.8); Eosinophils % (auto) 0.1 % (0.0-7.0); Hematocrit 38.2 % (41.0-53.0); Hemoglobin 13.1 g/dL (13.5-17.5); Lymphocytes # (auto) 1.8 10 ^3/uL (0.4-5.4); Mean Corpuscular Hemoglobin 30.9 pg (28.0-32.0); Mean Corpuscular Hgb Conc. 34.3 g/dL (32.0-36.0); Mean Corpuscular Volume 90.1 fL (80.0-100.0); Monocytes # (auto) 0.8 10 ^3/uL (0-1.3); Monocytes % (auto) 6.9 % (0.0-12.0); Neutrophils # (auto) 8.5 10 ^3/uL (1.6-8.6); Neutrophils % (auto) 76.2 % (37.0-80.0); Nucleated Red Blood Cells % 0.1 %; Red Blood Cells 4.24 10^6/uL (4.5-5.90); White Blood Cell 11.1 10^3/uL (4.4-10.8)
[2021-10-26 09:24] LABS: BUN/Creatinine Ratio 36.7; Calcium 8.9 mg/dL (8.5-10.1); Potassium 3.6 mmol/L (3.5-5.1)
[2021-10-26] MEDS: LOSARTAN POTASSIUM 25 MG TAB PO SCH (09:54)
[2021-10-26] MEDS: CITALOPRAM HYDROBR 20 MG TAB PO SCH (09:54)
[2021-10-26] MEDS: FERROUS SULFATE 325mg EC TAB PO SCH (09:55)
[2021-10-26] MEDS: levoFLOXacin 500MG 100 ML IV SCH (09:56)
[2021-10-26] MEDS: LIDOCAINE 5% TOPICAL PATCH TOP SCH (09:56)
[2021-10-26] MEDS: NIFEdipine ER 30 MG TAB PO SCH (10:11)
[2021-10-26] MEDS ORDERED: METOPROLOL TARTRATE 25 MG TAB PO ONE (11:30)
[2021-10-26 11:58] VITALS: BP 126/81
[2021-10-26] MEDS: ALBUTEROL SULF 2.5 MG/0.5ML(0.5%) NEB SOLN NEB PRN ×2 (14:35→19:23)
[2021-10-26] MEDS ORDERED: AMIODARONE HCL 200 MG TAB PO ONE (16:00)
[2021-10-26 16:30] VITALS: BP 111/60
[2021-10-26 20:27] VITALS: BP 111/60
[2021-10-26] MEDS: ATORVASTATIN 20 MG TAB PO SCH (21:01)
[2021-10-26] MEDS: AMIODARONE HCL 200 MG TAB PO SCH (21:02)
[2021-10-26] MEDS: METOPROLOL TARTRATE 25 MG TAB PO SCH (21:03)
[2021-10-26] MEDS: INSULIN LANTUS (GLARGINE) 1 /0.01ml (100units/ml) SC SCH (21:06)
[2021-10-27] MEDS: HYDROcodone-ACET 5/325MG TAB PO PRN (02:09)
[2021-10-27 05:00] VITALS: BP 117/75
[2021-10-27] MEDS: ACCU-CHEK COMFORT CURVE STRIP VI SCH ×4 (06:14→22:43)
[2021-10-27] MEDS: InsuLIN REG 1unit/0.01ml Soln (100units/ml) SC SCH ×4 (06:15→22:47)
[2021-10-27] MEDS: ALBUTEROL SULF 2.5 MG/0.5ML(0.5%) NEB SOLN NEB PRN ×2 (06:40→14:14)
[2021-10-27 09:00] VITALS: BP 124/76
[2021-10-27] MEDS ORDERED: DIGOXIN 0.125 MG TAB PO SCH (10:00)
[2021-10-27] MEDS: FERROUS SULFATE 325mg EC TAB PO SCH (10:17)
[2021-10-27] MEDS: AMIODARONE HCL 200 MG TAB PO SCH ×2 (10:17→22:47)
[2021-10-27] MEDS: levoFLOXacin 500MG 100 ML IV SCH (10:17)
[2021-10-27] MEDS: LOSARTAN POTASSIUM 25 MG TAB PO SCH (10:18)
[2021-10-27] MEDS: METOPROLOL TARTRATE 25 MG TAB PO SCH ×2 (10:19→22:49)
[2021-10-27] MEDS: LIDOCAINE 5% TOPICAL PATCH TOP SCH (10:19)
[2021-10-27 13:00] VITALS: BP 124/80
[2021-10-27 17:00] VITALS: BP 121/79
[2021-10-27] MEDS ORDERED: SODIUM CHLORIDE 0.9 % NEB SOLN 3ML NEB ONE (18:17)
[2021-10-27] MEDS: INSULIN LANTUS (GLARGINE) 1 /0.01ml (100units/ml) SC SCH (22:47)
[2021-10-27] MEDS: ATORVASTATIN 20 MG TAB PO SCH (22:48)
[2021-10-28] MEDS: HYDROcodone-ACET 5/325MG TAB PO PRN ×2 (04:10→18:05)
[2021-10-28 05:00] VITALS: BP 139/83
[2021-10-28] MEDS: ACCU-CHEK COMFORT CURVE STRIP VI SCH ×4 (06:11→22:22)
[2021-10-28] MEDS: InsuLIN REG 1unit/0.01ml Soln (100units/ml) SC SCH ×4 (06:16→22:24)
[2021-10-28 09:00] VITALS: BP 132/85
[2021-10-28] MEDS: AMIODARONE HCL 200 MG TAB PO SCH ×2 (09:56→21:21)
[2021-10-28] MEDS: LOSARTAN POTASSIUM 25 MG TAB PO SCH (09:56)
[2021-10-28] MEDS: levoFLOXacin 500MG 100 ML IV SCH (09:56)
[2021-10-28] MEDS: FERROUS SULFATE 325mg EC TAB PO SCH (09:56)
[2021-10-28] MEDS: METOPROLOL TARTRATE 25 MG TAB PO SCH ×2 (09:57→21:26)
[2021-10-28] MEDS: LIDOCAINE 5% TOPICAL PATCH TOP SCH (09:57)
[2021-10-28 12:33] VITALS: BP 117/61
[2021-10-28 17:00] VITALS: BP 133/71
[2021-10-28] MEDS: ATORVASTATIN 20 MG TAB PO SCH (21:21)
[2021-10-28 22:00] VITALS: BP 128/79
[2021-10-28] MEDS: INSULIN LANTUS (GLARGINE) 1 /0.01ml (100units/ml) SC SCH (22:23)
[2021-10-29] VITALS (7 sets, daily range): BP systolic 103–150; BP diastolic 65–84
[2021-10-29] MEDS: ACCU-CHEK COMFORT CURVE STRIP VI SCH ×3 (09:46→18:16)
[2021-10-29] MEDS: InsuLIN REG 1unit/0.01ml Soln (100units/ml) SC SCH ×3 (09:55→18:17)
[2021-10-29] MEDS: AMIODARONE HCL 200 MG TAB PO SCH (09:56)
[2021-10-29] MEDS: FERROUS SULFATE 325mg EC TAB PO SCH (09:56)
[2021-10-29] MEDS: METOPROLOL TARTRATE 25 MG TAB PO SCH (09:58)
[2021-10-29] MEDS: LOSARTAN POTASSIUM 25 MG TAB PO SCH (09:59)
[2021-10-29] MEDS: LIDOCAINE 5% TOPICAL PATCH TOP SCH (09:59)
[2021-10-29] MEDS ORDERED: levoFLOXacin 500 MG TAB PO SCH (10:00)
[2021-10-29] MEDS: HYDROcodone-ACET 5/325MG TAB PO PRN (14:39)
== END 2021-10-29 20:25 | DRG 183 ==
LOC: EDBD 10:14 → ER 10:14 → TELE 14:20 → TELE-EAST 20:30
PROVIDERS: ADMIT Hospitalist; ATTEND Internal Medicine
DX: S22.41XA Multiple fractures of ribs, right side, initial encounter for closed fracture (principal); J18.9 Pneumonia, unspecified organism; J96.21 Acute and chronic respiratory failure with hypoxia; G25.9 Extrapyramidal and movement disorder, unspecified; I31.9 Disease of pericardium, unspecified; J44.1 Chronic obstructive pulmonary disease with (acute) exacerbation; J94.8 Other specified pleural conditions; E11.40 Type 2 diabetes mellitus with diabetic neuropathy, unspecified; E78.5 Hyperlipidemia, unspecified; I10 Essential (primary) hypertension; E87.6 Hypokalemia; F03.90 Unspecified dementia, unspecified severity, without behavioral disturbance, psychotic disturbance, mood disturbance, and anxiety; J98.2 Interstitial emphysema; Z20.822 Contact with and (suspected) exposure to COVID-19; W18.39XA Other fall on same level, initial encounter; I16.0 Hypertensive urgency; I48.91 Unspecified atrial fibrillation; Z71.6 Tobacco abuse counseling; Y93.89 Activity, other specified; Y92.89 Other specified places as the place of occurrence of the external cause; Y99.8 Other external cause status
CPT/HCPCS: 36415; 71045; 71275; 80048; 80053; 80061; 80162; 80307; 81001; 82550; 82728; 82962; 83036; 83605; 83615; 83690; 83735; 83880; 84100; 84443; 84484; 84550; 85025; 85379; 85610; 85652; 85730; 86141; 87040; 87086; 93005; 93306; 94640; 96361; 96365; 96368; 96375; 97110; 97116; 97163; 97530; G0378; J0696; J1815; J1956; J2405; J3490

== ENCOUNTER → 2022-03-28 | Outpatient (CLI) | payer MEDICARE, OTHER ==
[~2022-03-28] VITALS: Ht 180.3 cm; Wt 72.6 kg
[~2022-03-28] MED LIST changes: +ADENOSINE 61 MG in GIVE UN-DILUTED 0 ML IV ONE; +ADENOSINE 90 MG/30 ML INJ IV ONE
== END | disposition home or self-care (01) ==
LOC: Rad HDHVI 13:26
PROVIDERS: ATTEND Internal Medicine Cardiovascular Disease
DX: E11.21 Type 2 diabetes mellitus with diabetic nephropathy (principal); E11.65 Type 2 diabetes mellitus with hyperglycemia; E11.40 Type 2 diabetes mellitus with diabetic neuropathy, unspecified; I10 Essential (primary) hypertension; E11.9 Type 2 diabetes mellitus without complications; E78.5 Hyperlipidemia, unspecified; Z82.49 Family history of ischemic heart disease and other diseases of the circulatory system
CPT/HCPCS: 78452; 93005; 96374; 96375; A9500; J0153

== ENCOUNTER → 2022-06-20 | Outpatient (CLI) | payer MEDICARE, OTHER ==
[~2022-06-20] MED LIST changes: -ADENOSINE 61 MG in GIVE UN-DILUTED 0 ML IV ONE; -ADENOSINE 90 MG/30 ML INJ IV ONE
[2022-06-20 12:21] LABS: Basophils # (auto) 0.1 10 ^3/uL (0-0.2); Basophils % (auto) 1.1 % (0.0-2.0); Eosinophils # (auto) 0.4 10 ^3/uL (0-0.8); Eosinophils % (auto) 4.5 % (0.0-7.0); Hematocrit 43.3 % (41.0-53.0); Hemoglobin 14.5 g/dL (13.5-17.5); Lymphocytes # (auto) 2.3 10 ^3/uL (0.4-5.4); Lymphocytes % (auto) 29.1 % (10.0-50.0); Mean Corpuscular Hemoglobin 30.1 pg (28.0-32.0); Mean Corpuscular Hgb Conc. 33.5 g/dL (32.0-36.0); Mean Corpuscular Volume 89.7 fL (80.0-100.0); Monocytes # (auto) 0.6 10 ^3/uL (0-1.3); Monocytes % (auto) 7.3 % (0.0-12.0); Neutrophils # (auto) 4.6 10 ^3/uL (1.6-8.6); Red Blood Cells 4.83 10^6/uL (4.5-5.90); Red Cell Distribution Width 14.8 % (11.8-14.3); Urine Blood Negative /uL (Negative); Urine Specific Gravity 1.027 (1.001-1.035); White Blood Cell 7.9 10^3/uL (4.4-10.8)
[2022-06-20 12:32] LABS: Alanine Aminotransferase 30 U/L (16-61); Albumin 3.9 g/dL (3.4-5.0); Anion Gap 10 (5-15); BUN/Creatinine Ratio 28.1; Blood Urea Nitrogen 27 mg/dL (7-18); Calcium 9.7 mg/dL (8.5-10.1); Carbon Dioxide 28 mmol/L (21-32); Chloride 101 mmol/L (98-107); GFR African American 97 mL/min; GFR Non-African American 81 mL/min; Glucose 143 mg/dL (74-106); Potassium 4.5 mmol/L (3.5-5.1); Sodium 139 mmol/L (136-145)
[2022-06-20 12:35] LABS: Alkaline Phosphatase 116 U/L (45-117); Aspartate Aminotransferase 14 U/L (15-37); Bilirubin, Total 0.4 mg/dL (0.2-1.0); Total Protein 7.8 g/dL (6.4-8.2)
[2022-06-20 12:53] LABS: Free T4 (Free Thyroxine) 1.16 ng/dL (0.89-1.76); Prostate Specific Antigen 0.02 ng/mL (0.0-4.0)
[2022-06-20 13:10] LABS: Cholesterol 296 mg/dL (< 200); HDL Cholesterol 41 mg/dL (40-59); Triglycerides 420 mg/dL (< 150)
== END | disposition home or self-care (01) ==
LOC: LAB 10:46
PROVIDERS: ATTEND Internal Medicine Cardiovascular Disease
DX: I10 Essential (primary) hypertension (principal); E55.9 Vitamin D deficiency, unspecified
CPT/HCPCS: 36415; 80053; 80061; 81003; 82306; 82607; 83036; 84153; 84403; 84439; 84443; 85025

== ENCOUNTER → 2022-08-15 | Outpatient (CLI) | payer MEDICARE, OTHER | END | disposition home or self-care (01) | LOC: Rad HDHVI 16:21 | PROVIDERS: ATTEND Internal Medicine Cardiovascular Disease | DX: R06.02 Shortness of breath (principal); R05.9 Cough, unspecified | CPT/HCPCS: 71046 ==

== ENCOUNTER → 2022-12-02 | Outpatient (CLI) | payer MEDICARE, OTHER ==
[~2022-12-02] MED LIST changes: +LOSA25TA15 PO; -LOSA25TA38 PO
== END | disposition home or self-care (01) ==
LOC: Rad HDHVI 10:57
PROVIDERS: ATTEND Internal Medicine Cardiovascular Disease
DX: R06.02 Shortness of breath (principal); R09.89 Other specified symptoms and signs involving the circulatory and respiratory systems
CPT/HCPCS: 71046

== ENCOUNTER 2023-02-01 12:28 | Inpatient (IN) | payer MEDICARE, OTHER ==
[~2023-02-01] VITALS: Ht 155.7 cm; Wt 69.0 kg
[2023-02-01] MEDS ORDERED: NITROGLYCERIN 0.4 MG SL TAB SL PRN (17:30)
[2023-02-01] MEDS ORDERED: MORPHINE SULFATE INJ 2 MG/ml SYRG IV PRN (17:30)
[2023-02-01 18:30] VITALS: BP 113/75; PULSE 92; RESP 18; TEMP 98.6; O2SAT 94
[2023-02-01] MEDS: metFORMIN HYDROCHLORIDE 500 MG TAB PO SCH (18:51)
[2023-02-01] MEDS ORDERED: MAGN400T40 PO (19:04)
[2023-02-01] MEDS ORDERED: ATOR20TA50 PO (19:52)
[2023-02-01] MEDS ORDERED: FLUT1AER3 INH (19:53)
[2023-02-01] MEDS ORDERED: MONT-8 PO (19:55)
[2023-02-01 20:00] VITALS: BP 113/68; PULSE 89; RESP 18; RESP 20; TEMP 97.8; O2SAT 94
[2023-02-01 22:00] VITALS: BP 113/68; PULSE 89; RESP 20; TEMP 97.8; O2SAT 94
[2023-02-01] MEDS: MONTELUKAST SODIUM 10 MG TAB PO SCH (22:00)
[2023-02-01] MEDS: MAGNESIUM OXIDE 400 MG TAB PO SCH (22:00)
[2023-02-01] MEDS: ATORVASTATIN 20 MG TAB PO SCH (22:00)
[2023-02-02] VITALS (13 sets, daily range): BP systolic 99–130; BP diastolic 63–75; PULSE 79–107; RESP 17–20; TEMP 97.6–98.2; O2SAT 91–98
[2023-02-02] MEDS: IPRATROPIUM BROM 0.5 MG/2.5ML INH SOL NEB SCH ×3 (06:59→19:05)
[2023-02-02] MEDS: ALBUTEROL SULF 2.5 MG/0.5ML(0.5%) NEB SOLN NEB PRN ×2 (07:00→19:05)
[2023-02-02] MEDS: CITALOPRAM HYDROBR 20 MG TAB PO SCH (08:41)
[2023-02-02] MEDS: metFORMIN HYDROCHLORIDE 500 MG TAB PO SCH ×2 (08:42→17:57)
[2023-02-02] MEDS: cefTRIAXone 1GM/50ML D5W 50 ML IV SCH (08:42)
[2023-02-02] MEDS: predniSONE 20 MG TAB PO SCH (08:43)
[2023-02-02] MEDS: MAGNESIUM OXIDE 400 MG TAB PO SCH ×2 (08:43→21:24)
[2023-02-02] MEDS: VALSARTAN 80 MG TAB PO SCH (08:43)
[2023-02-02] MEDS ORDERED: PROPRANOLOL HCL 20 MG TAB PO SCH (10:00)
[2023-02-02] MEDS ORDERED: DEXTROSE (50%) 50ML SYRG IV PRN (16:30)
[2023-02-02] MEDS: ACCU-CHEK COMFORT CURVE STRIP VI SCH (18:01)
[2023-02-02] MEDS: InsuLIN REG 1unit/0.01ml Soln (100units/ml) SC SCH (18:05)
[2023-02-02 18:39] LABS: Basophils # (auto) 0 10 ^3/uL (0-0.2); Basophils % (auto) 0.2 % (0.0-2.0); Eosinophils # (auto) 0 10 ^3/uL (0-0.8); Hematocrit 39.6 % (41.0-53.0); Hemoglobin 13.2 g/dL (13.5-17.5); Lymphocytes # (auto) 1.2 10 ^3/uL (0.4-5.4); Lymphocytes % (auto) 12.9 % (10.0-50.0); Mean Corpuscular Hemoglobin 30.1 pg (28.0-32.0); Mean Corpuscular Hgb Conc. 33.4 g/dL (32.0-36.0); Mean Corpuscular Volume 90.2 fL (80.0-100.0); Monocytes # (auto) 0.1 10 ^3/uL (0-1.3); Monocytes % (auto) 1.5 % (0.0-12.0); Neutrophils # (auto) 8.2 10 ^3/uL (1.6-8.6); Neutrophils % (auto) 85.4 % (37.0-80.0); Nucleated Red Blood Cells % 0.1 %; Red Cell Distribution Width 13.7 % (11.8-14.3); White Blood Cell 9.6 10^3/uL (4.4-10.8)
[2023-02-02 18:45] LABS: Urine Bacteria NONE SEEN /hpf (None Seen); Urine Blood Negative /uL (Negative); Urine Hyaline Cast FEW /lpf (0 - 2); Urine Mucus FEW (None Seen); Urine Specific Gravity 1.029 (1.001-1.035); Urine WBC 2 /hpf (0 - 3)
[2023-02-02 19:01] LABS: Albumin 3.4 g/dL (3.4-5.0); Calcium 9.2 mg/dL (8.5-10.1); Potassium 5.1 mmol/L (3.5-5.1)
[2023-02-02 19:04] LABS: BUN/Creatinine Ratio 26.6 (10.0-20.0); Bilirubin, Total 0.3 mg/dL (0.2-1.0); Total Protein 7.7 g/dL (6.4-8.2)
[2023-02-02] MEDS: MONTELUKAST SODIUM 10 MG TAB PO SCH (21:24)
[2023-02-02] MEDS: ATORVASTATIN 20 MG TAB PO SCH (21:24)
[2023-02-03] VITALS (13 sets, daily range): BP systolic 106–129; BP diastolic 66–78; PULSE 79–97; RESP 17–20; TEMP 97.3–98.3; O2SAT 92–97
[2023-02-03] MEDS: InsuLIN REG 1unit/0.01ml Soln (100units/ml) SC SCH ×5 (06:00→23:50)
[2023-02-03] MEDS: ACCU-CHEK COMFORT CURVE STRIP VI SCH ×5 (06:01→23:45)
[2023-02-03] MEDS: ALBUTEROL SULF 2.5 MG/0.5ML(0.5%) NEB SOLN NEB PRN ×2 (06:36→19:01)
[2023-02-03] MEDS: IPRATROPIUM BROM 0.5 MG/2.5ML INH SOL NEB SCH ×4 (06:36→19:01)
[2023-02-03] MEDS: metFORMIN HYDROCHLORIDE 500 MG TAB PO SCH ×2 (09:11→17:24)
[2023-02-03] MEDS: cefTRIAXone 1GM/50ML D5W 50 ML IV SCH (09:11)
[2023-02-03] MEDS: predniSONE 20 MG TAB PO SCH (09:11)
[2023-02-03] MEDS: CITALOPRAM HYDROBR 20 MG TAB PO SCH (09:12)
[2023-02-03] MEDS: MAGNESIUM OXIDE 400 MG TAB PO SCH ×2 (09:12→21:41)
[2023-02-03] MEDS: VALSARTAN 80 MG TAB PO SCH (09:12)
[2023-02-03] MEDS: ATORVASTATIN 20 MG TAB PO SCH (21:41)
[2023-02-03] MEDS: MONTELUKAST SODIUM 10 MG TAB PO SCH (21:42)
[2023-02-04] VITALS (13 sets, daily range): BP systolic 105–133; BP diastolic 68–86; PULSE 75–115; RESP 16–20; TEMP 97.5–98.4; O2SAT 92–98
[2023-02-04] MEDS: InsuLIN REG 1unit/0.01ml Soln (100units/ml) SC SCH ×3 (06:00→17:27)
[2023-02-04] MEDS: IPRATROPIUM BROM 0.5 MG/2.5ML INH SOL NEB SCH ×4 (06:31→19:01)
[2023-02-04] MEDS: ACCU-CHEK COMFORT CURVE STRIP VI SCH ×3 (06:47→17:26)
[2023-02-04] MEDS: cefTRIAXone 1GM/50ML D5W 50 ML IV SCH (08:10)
[2023-02-04] MEDS: metFORMIN HYDROCHLORIDE 500 MG TAB PO SCH ×2 (08:10→17:26)
[2023-02-04] MEDS: predniSONE 20 MG TAB PO SCH (10:32)
[2023-02-04] MEDS: CITALOPRAM HYDROBR 20 MG TAB PO SCH (10:32)
[2023-02-04] MEDS: MAGNESIUM OXIDE 400 MG TAB PO SCH ×2 (10:33→21:17)
[2023-02-04] MEDS: VALSARTAN 80 MG TAB PO SCH (10:33)
[2023-02-04] MEDS: ALBUTEROL SULF 2.5 MG/0.5ML(0.5%) NEB SOLN NEB PRN (19:01)
[2023-02-04] MEDS: MONTELUKAST SODIUM 10 MG TAB PO SCH (21:15)
[2023-02-04] MEDS: ATORVASTATIN 20 MG TAB PO SCH (21:17)
[2023-02-05] VITALS (14 sets, daily range): BP systolic 105–117; BP diastolic 64–69; PULSE 80–103; RESP 16–19; TEMP 97.1–97.9; O2SAT 93–100
[2023-02-05] MEDS: IPRATROPIUM BROM 0.5 MG/2.5ML INH SOL NEB SCH ×4 (00:06→18:59)
[2023-02-05] MEDS: ALBUTEROL SULF 2.5 MG/0.5ML(0.5%) NEB SOLN NEB PRN ×4 (00:06→18:59)
[2023-02-05] MEDS: InsuLIN REG 1unit/0.01ml Soln (100units/ml) SC SCH ×4 (00:59→17:13)
[2023-02-05] MEDS: ACCU-CHEK COMFORT CURVE STRIP VI SCH ×4 (00:59→17:10)
[2023-02-05] MEDS: cefTRIAXone 1GM/50ML D5W 50 ML IV SCH (09:18)
[2023-02-05] MEDS: VALSARTAN 80 MG TAB PO SCH (09:18)
[2023-02-05] MEDS: predniSONE 20 MG TAB PO SCH (09:18)
[2023-02-05] MEDS: CITALOPRAM HYDROBR 20 MG TAB PO SCH (09:19)
[2023-02-05] MEDS: metFORMIN HYDROCHLORIDE 500 MG TAB PO SCH ×2 (09:19→17:10)
[2023-02-05] MEDS: MAGNESIUM OXIDE 400 MG TAB PO SCH ×2 (09:19→20:41)
[2023-02-05] MEDS ORDERED: PROP60CA34 PO (16:11)
[2023-02-05] MEDS: MONTELUKAST SODIUM 10 MG TAB PO SCH (20:41)
[2023-02-05] MEDS: ATORVASTATIN 20 MG TAB PO SCH (20:41)
[2023-02-06] VITALS (13 sets, daily range): BP systolic 93–138; BP diastolic 61–88; PULSE 73–107; RESP 16–22; TEMP 97.5–98.1; O2SAT 94–100
[2023-02-06] MEDS: IPRATROPIUM BROM 0.5 MG/2.5ML INH SOL NEB SCH ×4 (00:21→18:41)
[2023-02-06] MEDS: ACCU-CHEK COMFORT CURVE STRIP VI SCH ×4 (05:20→17:19)
[2023-02-06] MEDS: InsuLIN REG 1unit/0.01ml Soln (100units/ml) SC SCH ×4 (05:35→17:23)
[2023-02-06] MEDS: cefTRIAXone 1GM/50ML D5W 50 ML IV SCH (09:01)
[2023-02-06] MEDS: MAGNESIUM OXIDE 400 MG TAB PO SCH (09:02)
[2023-02-06] MEDS: predniSONE 20 MG TAB PO SCH (09:02)
[2023-02-06] MEDS: VALSARTAN 80 MG TAB PO SCH (09:02)
[2023-02-06] MEDS: CITALOPRAM HYDROBR 20 MG TAB PO SCH (09:03)
[2023-02-06] MEDS: metFORMIN HYDROCHLORIDE 500 MG TAB PO SCH ×2 (09:03→17:19)
[2023-02-06] MEDS: ALBUTEROL SULF 2.5 MG/0.5ML(0.5%) NEB SOLN NEB PRN (09:35)
== END 2023-02-06 19:36 | DRG 190 ==
LOC: WEST WING 17:40
PROVIDERS: ADMIT Internal Medicine Cardiovascular Disease; ATTEND Internal Medicine Cardiovascular Disease
DX: J44.1 Chronic obstructive pulmonary disease with (acute) exacerbation (principal); J96.90 Respiratory failure, unspecified, unspecified whether with hypoxia or hypercapnia; D68.59 Other primary thrombophilia; Z20.822 Contact with and (suspected) exposure to COVID-19; E11.9 Type 2 diabetes mellitus without complications; E78.5 Hyperlipidemia, unspecified; I10 Essential (primary) hypertension; I48.0 Paroxysmal atrial fibrillation; E11.40 Type 2 diabetes mellitus with diabetic neuropathy, unspecified
CPT/HCPCS: 36415; 71045; 80053; 81001; 82962; 85025; 87426; 94640; G0378; J0696; J1815

== ENCOUNTER 2023-02-17 06:08 | Inpatient (IN) | payer MEDICARE, OTHER ==
[~2023-02-17] VITALS: Ht 185.4 cm; Wt 81.0 kg
[~2023-02-17 06:08] MED LIST changes: -ACET-1079 PO; -ALBU0.084 NEB; -ALBUAER3 IN; -DOX100T PO; -FER325T PO; -FLUT230A2 IN; -METH4PAK PO; +PROP60CA34 PO
[2023-02-17] MEDS ORDERED: MORPHINE SULFATE 4 MG/ML SYR/VIAL IV ONE (07:15)
[2023-02-17] MEDS ORDERED: ONDANSETRON HCL 4 MG/2 ML VIAL IV ONE (07:15)
[2023-02-17 08:47] LABS: Basophils # (auto) 0.2 10 ^3/uL (0-0.2); Basophils % (auto) 0.7 % (0.0-2.0); Eosinophils # (auto) 0 10 ^3/uL (0-0.8); Eosinophils % (auto) 0.1 % (0.0-7.0); Hematocrit 40.3 % (41.0-53.0); Hemoglobin 13.5 g/dL (13.5-17.5); Lymphocytes # (auto) 1.8 10 ^3/uL (0.4-5.4); Lymphocytes % (auto) 7.9 % (10.0-50.0); Mean Corpuscular Hemoglobin 29.9 pg (28.0-32.0); Mean Corpuscular Hgb Conc. 33.5 g/dL (32.0-36.0); Mean Corpuscular Volume 89.3 fL (80.0-100.0); Monocytes # (auto) 1.3 10 ^3/uL (0-1.3); Monocytes % (auto) 5.7 % (0.0-12.0); Neutrophils # (auto) 19.6 10 ^3/uL (1.6-8.6); Neutrophils % (auto) 85.6 % (37.0-80.0); Red Blood Cells 4.51 10^6/uL (4.5-5.90); Red Cell Distribution Width 13.7 % (11.8-14.3); White Blood Cell 22.8 10^3/uL (4.4-10.8)
[2023-02-17 08:58] LABS: INR 0.97 (0.9-1.15); Prothrombin Time 10.2 sec (9.3-11.8)
[2023-02-17 09:07] LABS: Albumin 3.3 g/dL (3.4-5.0); Potassium 4.4 mmol/L (3.5-5.1)
[2023-02-17 09:11] LABS: BUN/Creatinine Ratio 45.4 (10.0-20.0); Bilirubin, Total 0.7 mg/dL (0.2-1.0); Total Protein 6.6 g/dL (6.4-8.2)
[2023-02-17 09:18] VITALS: PULSE 79; RESP 19; O2SAT 97
[2023-02-17] MEDS ORDERED: cefTRIAXone 1GM/50ML D5W 50 ML IV ONE (10:00)
[2023-02-17] MEDS ORDERED: NITROGLYCERIN 0.4 MG SL TAB SL PRN (10:00)
[2023-02-17] MEDS ORDERED: ONDANSETRON HCL 4 MG/2 ML VIAL IV PRN (10:00)
[2023-02-17] MEDS ORDERED: MORPHINE SULFATE INJ 2 MG/ml SYRG IV PRN (10:00)
[2023-02-17] MEDS ORDERED: DEXTROSE (50%) 50ML SYRG IV PRN (10:45)
[2023-02-17] MEDS ORDERED: hydrALAZINE HCL 20 MG/ML VL IV PRN (10:45)
[2023-02-17] MEDS: SODIUM CHLORIDE 0.9% 1,000 ML IV SCH ×2 (11:06→20:45)
[2023-02-17] MEDS: ACCU-CHEK COMFORT CURVE STRIP VI SCH ×2 (12:00→18:33)
[2023-02-17] MEDS ORDERED: ENOXAPARIN SOD 40 MG/0.4 ML SYRINGE SC SCH (12:30)
[2023-02-17] MEDS: InsuLIN REG 1unit/0.01ml Soln (100units/ml) SC SCH ×2 (13:12→18:33)
[2023-02-17 15:42] LABS: Basophils # (auto) 0.1 10 ^3/uL (0-0.2); Basophils % (auto) 0.4 % (0.0-2.0); Eosinophils # (auto) 0 10 ^3/uL (0-0.8); Eosinophils % (auto) 0.2 % (0.0-7.0); Hematocrit 40.4 % (41.0-53.0); Hemoglobin 13.5 g/dL (13.5-17.5); Lymphocytes # (auto) 2.2 10 ^3/uL (0.4-5.4); Lymphocytes % (auto) 12.1 % (10.0-50.0); Mean Corpuscular Hgb Conc. 33.4 g/dL (32.0-36.0); Mean Corpuscular Volume 89.8 fL (80.0-100.0); Monocytes # (auto) 1.3 10 ^3/uL (0-1.3); Monocytes % (auto) 7.3 % (0.0-12.0); Neutrophils # (auto) 14.4 10 ^3/uL (1.6-8.6); Nucleated Red Blood Cells % 0.2 %; Red Cell Distribution Width 13.8 % (11.8-14.3)
[2023-02-17] MEDS: MORPHINE SULFATE INJ 2 MG/ml SYRG IV PRN ×2 (15:57→23:00)
[2023-02-17 17:50] VITALS: BP 127/94; PULSE 83; RESP 17
[2023-02-17 18:24] LABS: Urine Bacteria NONE SEEN /hpf (None Seen); Urine Blood Negative /uL (Negative); Urine Clarity Clear (Clear); Urine Color Yellow (Yellow); Urine Mucus FEW (None Seen); Urine Protein, UAD TRACE (Negative); Urine Specific Gravity 1.028 (1.001-1.035); Urine Urobilinogen Normal (Negative); Urine WBC 1 /hpf (0 - 3)
[2023-02-17 22:00] VITALS: BP 126/73; PULSE 97; RESP 17; TEMP 97.8; O2SAT 100
[2023-02-17] MEDS: ATORVASTATIN 20 MG TAB PO SCH (22:00)
[2023-02-18] VITALS (27 sets, daily range): BP systolic 90–116; BP diastolic 53–68; PULSE 18–112; RESP 15–95; TEMP 97.8–98.8; O2SAT 16–99
[2023-02-18] MEDS: MORPHINE SULFATE INJ 2 MG/ml SYRG IV PRN (05:56)
[2023-02-18] MEDS: ACCU-CHEK COMFORT CURVE STRIP VI SCH ×4 (06:00→18:25)
[2023-02-18] MEDS: InsuLIN REG 1unit/0.01ml Soln (100units/ml) SC SCH ×4 (06:00→18:27)
[2023-02-18 06:32] LABS: Basophils # (auto) 0 10 ^3/uL (0-0.2); Basophils % (auto) 0.1 % (0.0-2.0); Eosinophils # (auto) 0.1 10 ^3/uL (0-0.8); Eosinophils % (auto) 0.4 % (0.0-7.0); Hemoglobin 13.1 g/dL (13.5-17.5); Lymphocytes # (auto) 1.5 10 ^3/uL (0.4-5.4); Mean Corpuscular Hemoglobin 29.9 pg (28.0-32.0); Mean Corpuscular Hgb Conc. 33.5 g/dL (32.0-36.0); Mean Corpuscular Volume 89.1 fL (80.0-100.0); Monocytes # (auto) 1.2 10 ^3/uL (0-1.3); Monocytes % (auto) 8.3 % (0.0-12.0); Neutrophils # (auto) 11.9 10 ^3/uL (1.6-8.6); Neutrophils % (auto) 81.2 % (37.0-80.0); Nucleated Red Blood Cells % 0.1 %; Red Blood Cells 4.37 10^6/uL (4.5-5.90); Red Cell Distribution Width 13.8 % (11.8-14.3); White Blood Cell 14.6 10^3/uL (4.4-10.8)
[2023-02-18] MEDS: SODIUM CHLORIDE 0.9% 1,000 ML IV SCH ×2 (06:33→16:45)
[2023-02-18] MEDS ORDERED: TRANEXAMIC ACID 20 ML ONE (06:33)
[2023-02-18] MEDS ORDERED: BUPIVACAINE 0.25% INJ 50ML VIAL ONE (06:33)
[2023-02-18] MEDS ORDERED: VANCOMYCIN HCL 1000 MG VL ONE (06:34)
[2023-02-18] MEDS ORDERED: KETOROLAC TROMETH 30 MG/ML 1ML VIAL ONE (06:35)
[2023-02-18] MEDS ORDERED: MORPHINE SULF PF 5 MG/10 ML VIAL ONE ×2 (06:35→07:48)
[2023-02-18 06:50] LABS: Albumin 2.9 g/dL (3.4-5.0); Calcium 8.4 mg/dL (8.5-10.1); Potassium 3.8 mmol/L (3.5-5.1)
[2023-02-18 06:54] LABS: BUN/Creatinine Ratio 38.1 (10.0-20.0); Bilirubin, Total 0.8 mg/dL (0.2-1.0); Total Protein 6.4 g/dL (6.4-8.2)
[2023-02-18] MEDS ORDERED: ROPIVACAINE 0.5% (5MG/ML) 20ML AMPULE IJ ONE (07:40)
[2023-02-18] MEDS ORDERED: BUPIVACAINE 0.5% P/F INJ 10 ML VIAL ONE (07:44)
[2023-02-18] MEDS ORDERED: fentaNYL CITRATE 100 MCG/2 ML VL ONE (07:48)
[2023-02-18] MEDS ORDERED: ePHEDrine SULFATE 50 MG/ML AMP ONE (07:49)
[2023-02-18] MEDS ORDERED: MIDAZOLAM HCL 2MG/2ML 2ml VIAL (1mg/ml) ONE (07:49)
[2023-02-18] MEDS ORDERED: NEOSTIGMINE 1 MG/ML INJ (10mg/10ML VIAL) ONE (07:49)
[2023-02-18] MEDS ORDERED: GLYCOPYRROLATE 0.2 MG/ML 1ML VIAL ONE (07:49)
[2023-02-18] MEDS ORDERED: HYDROCORTISONE SOD SUCC 100 MG/2ML INJ VIAL ONE (07:49)
[2023-02-18] MEDS ORDERED: PROPOFOL 10 MG/ML 20 ML IV ONE (07:49)
[2023-02-18] MEDS ORDERED: KETAMINE HCL 10 ML ONE (07:49)
[2023-02-18] MEDS ORDERED: ONDANSETRON HCL 4 MG/2 ML VIAL ONE (07:49)
[2023-02-18] MEDS ORDERED: ceFAZolin 1GM VL ONE (08:20)
[2023-02-18] MEDS ORDERED: ESMOLOL HCL 10 ML IV ONE (08:42)
[2023-02-18] MEDS: LACTATED RINGER'S 1,000 ML IV SCH (09:30)
[2023-02-18] MEDS ORDERED: IPRATROPIUM BROM 0.5 MG/2.5ML INH SOL NEB ONE (09:30)
[2023-02-18] MEDS ORDERED: ALBUTEROL SULF 2.5 MG/0.5ML(0.5%) NEB SOLN NEB ONE (09:30)
[2023-02-18] MEDS ORDERED: diphenhdrAMINE HCL 50 MG/1 ML VL IV PRN (09:30)
[2023-02-18] MEDS ORDERED: DexAMETHasone SOD PHOS 10MG/1ML VIAL INJ IV PRN (09:30)
[2023-02-18] MEDS ORDERED: NALOXONE HCL 0.4 MG/ML VIAL IV PRN (09:30)
[2023-02-18] MEDS ORDERED: ONDANSETRON HCL 4 MG/2 ML VIAL IV PRN ×2 (09:30)
[2023-02-18] MEDS ORDERED: ACCU-CHEK COMFORT CURVE STRIP VI ONE (09:30)
[2023-02-18] MEDS ORDERED: ALBUTEROL SULF 2.5 MG/0.5ML(0.5%) NEB SOLN ONE (09:34)
[2023-02-18] MEDS ORDERED: IPRATROPIUM BROM 0.5 MG/2.5ML INH SOL ONE (09:34)
[2023-02-18] MEDS: PROPRANOLOL HCL 40 MG PO SCH (10:00)
[2023-02-18] MEDS: NIFEdipine ER 30 MG TAB PO SCH (10:00)
[2023-02-18] MEDS: CITALOPRAM HYDROBR 20 MG TAB PO SCH (10:00)
[2023-02-18] MEDS: LOSARTAN POTASSIUM 25 MG TAB PO SCH (10:00)
[2023-02-18] MEDS ORDERED: ALBUTEROL SULF 2.5 MG/0.5ML(0.5%) NEB SOLN NEB PRN (10:15)
[2023-02-18] MEDS: methylPREDNISolone SOD SUCC 40 MG/ML VL IV SCH ×2 (10:15→22:03)
[2023-02-18] MEDS ORDERED: LACTULOSE 20Gm/30ML SOLN PO PRN (10:15)
[2023-02-18] MEDS: ENOXAPARIN SOD 40 MG/0.4 ML SYRINGE SC SCH (11:52)
[2023-02-18] MEDS: ALBUTEROL SULF 2.5 MG/0.5ML(0.5%) NEB SOLN NEB SCH ×2 (12:12→18:01)
[2023-02-18] MEDS: IPRATROPIUM BROM 0.5 MG/2.5ML INH SOL NEB SCH ×2 (12:12→18:01)
[2023-02-18] MEDS: ceFAZolin 1GM/50ML 50 ML IV SCH ×3 (15:30→22:42)
[2023-02-18] MEDS ORDERED: HYDROCORTISONE SOD SUCC 100 MG/2ML INJ VIAL IV SCH (16:00)
[2023-02-18] MEDS: ATORVASTATIN 20 MG TAB PO SCH (22:03)
[2023-02-18] MEDS: INSULIN LANTUS (GLARGINE) 1 /0.01ml (100units/ml) SC SCH (22:22)
[2023-02-19] VITALS (27 sets, daily range): BP systolic 103–121; BP diastolic 51–74; PULSE 75–98; RESP 16–22; TEMP 97.6–98.2; O2SAT 93–100
[2023-02-19] MEDS: ALBUTEROL SULF 2.5 MG/0.5ML(0.5%) NEB SOLN NEB SCH ×4 (00:17→18:12)
[2023-02-19] MEDS: IPRATROPIUM BROM 0.5 MG/2.5ML INH SOL NEB SCH ×4 (00:17→18:12)
[2023-02-19] MEDS: InsuLIN REG 1unit/0.01ml Soln (100units/ml) SC SCH ×4 (01:54→18:37)
[2023-02-19] MEDS: SODIUM CHLORIDE 0.9% 1,000 ML IV SCH ×3 (03:01→22:45)
[2023-02-19 04:24] LABS: Basophils # (auto) 0 10 ^3/uL (0-0.2); Basophils % (auto) 0.1 % (0.0-2.0); Eosinophils # (auto) 0 10 ^3/uL (0-0.8); Hematocrit 33.4 % (41.0-53.0); Hemoglobin 11.2 g/dL (13.5-17.5); Lymphocytes # (auto) 0.5 10 ^3/uL (0.4-5.4); Lymphocytes % (auto) 3.4 % (10.0-50.0); Mean Corpuscular Hemoglobin 30.2 pg (28.0-32.0); Mean Corpuscular Hgb Conc. 33.5 g/dL (32.0-36.0); Mean Corpuscular Volume 89.9 fL (80.0-100.0); Monocytes # (auto) 0.4 10 ^3/uL (0-1.3); Monocytes % (auto) 2.9 % (0.0-12.0); Neutrophils # (auto) 12.6 10 ^3/uL (1.6-8.6); Neutrophils % (auto) 93.6 % (37.0-80.0); Red Blood Cells 3.72 10^6/uL (4.5-5.90); Red Cell Distribution Width 13.7 % (11.8-14.3); White Blood Cell 13.4 10^3/uL (4.4-10.8)
[2023-02-19 04:31] LABS: Albumin 2.5 g/dL (3.4-5.0); Calcium 8.3 mg/dL (8.5-10.1); Potassium 4.5 mmol/L (3.5-5.1)
[2023-02-19 04:35] LABS: Bilirubin, Total 0.2 mg/dL (0.2-1.0); Total Protein 5.9 g/dL (6.4-8.2)
[2023-02-19] MEDS: ACCU-CHEK COMFORT CURVE STRIP VI SCH ×4 (06:00→17:55)
[2023-02-19] MEDS: NIFEdipine ER 30 MG TAB PO SCH (10:00)
[2023-02-19] MEDS: LOSARTAN POTASSIUM 25 MG TAB PO SCH (10:00)
[2023-02-19] MEDS: PROPRANOLOL HCL 40 MG PO SCH (10:00)
[2023-02-19] MEDS: cefTRIAXone 1GM/50ML D5W 50 ML IV SCH (10:46)
[2023-02-19] MEDS: ENOXAPARIN SOD 40 MG/0.4 ML SYRINGE SC SCH (10:53)
[2023-02-19] MEDS: methylPREDNISolone SOD SUCC 40 MG/ML VL IV SCH ×2 (10:53→21:21)
[2023-02-19] MEDS: CITALOPRAM HYDROBR 20 MG TAB PO SCH (10:54)
[2023-02-19] MEDS ORDERED: ACETAMINOPHEN 325 MG TAB PO PRN (13:15)
[2023-02-19] MEDS: HYDROcodone-ACET 5/325MG TAB PO PRN (13:33)
[2023-02-19] MEDS: LACTATED RINGER'S 1,000 ML IV SCH (15:30)
[2023-02-19] MEDS: ATORVASTATIN 20 MG TAB PO SCH (21:21)
[2023-02-19] MEDS: INSULIN LANTUS (GLARGINE) 1 /0.01ml (100units/ml) SC SCH (22:38)
[2023-02-20] VITALS (12 sets, daily range): BP systolic 111–139; BP diastolic 64–70; PULSE 70–93; RESP 16–20; TEMP 97.4–98.3; O2SAT 90–100
[2023-02-20] MEDS: ALBUTEROL SULF 2.5 MG/0.5ML(0.5%) NEB SOLN NEB SCH ×4 (00:05→18:18)
[2023-02-20] MEDS: IPRATROPIUM BROM 0.5 MG/2.5ML INH SOL NEB SCH ×4 (00:05→18:18)
[2023-02-20] MEDS: ACCU-CHEK COMFORT CURVE STRIP VI SCH ×4 (00:24→17:34)
[2023-02-20] MEDS: InsuLIN REG 1unit/0.01ml Soln (100units/ml) SC SCH ×4 (00:24→17:35)
[2023-02-20] MEDS: LACTATED RINGER'S 1,000 ML IV SCH (01:30)
[2023-02-20] MEDS: HYDROcodone-ACET 5/325MG TAB PO PRN (04:44)
[2023-02-20 07:35] LABS: Basophils # (auto) 0 10 ^3/uL (0-0.2); Eosinophils # (auto) 0 10 ^3/uL (0-0.8); Hematocrit 28.6 % (41.0-53.0); Hemoglobin 9.8 g/dL (13.5-17.5); Lymphocytes # (auto) 0.5 10 ^3/uL (0.4-5.4); Lymphocytes % (auto) 3.6 % (10.0-50.0); Mean Corpuscular Hemoglobin 30.3 pg (28.0-32.0); Mean Corpuscular Hgb Conc. 34.1 g/dL (32.0-36.0); Mean Corpuscular Volume 88.9 fL (80.0-100.0); Monocytes # (auto) 0.6 10 ^3/uL (0-1.3); Monocytes % (auto) 4.2 % (0.0-12.0); Neutrophils # (auto) 12.8 10 ^3/uL (1.6-8.6); Neutrophils % (auto) 92.2 % (37.0-80.0); Red Blood Cells 3.22 10^6/uL (4.5-5.90); Red Cell Distribution Width 13.3 % (11.8-14.3); White Blood Cell 13.9 10^3/uL (4.4-10.8)
[2023-02-20] MEDS: methylPREDNISolone SOD SUCC 40 MG/ML VL IV SCH (09:40)
[2023-02-20] MEDS: ENOXAPARIN SOD 40 MG/0.4 ML SYRINGE SC SCH (09:40)
[2023-02-20] MEDS: cefTRIAXone 1GM/50ML D5W 50 ML IV SCH (09:40)
[2023-02-20] MEDS: LOSARTAN POTASSIUM 25 MG TAB PO SCH (09:41)
[2023-02-20] MEDS: NIFEdipine ER 30 MG TAB PO SCH (09:41)
[2023-02-20] MEDS: CITALOPRAM HYDROBR 20 MG TAB PO SCH (09:41)
[2023-02-20] MEDS: PROPRANOLOL HCL 40 MG PO SCH (09:42)
[2023-02-20] MEDS: SODIUM CHLORIDE 0.9% 1,000 ML IV SCH ×2 (09:42→17:35)
[2023-02-20] MEDS ORDERED: DEXTROSE (50%) 50ML SYRG IV PRN (11:45)
[2023-02-20 17:20] LABS: COVID19 ANTIGEN SOFIA FIA NEGATIVE (NEGATIVE)
== END 2023-02-20 20:30 | DRG 522 ==
LOC: ER 06:08 → EDBD 06:08 → OVERFLOW 10:16 → CENTRAL 17:39
PROVIDERS: ADMIT Internal Medicine Pulmonary Disease; ATTEND Internal Medicine
PROC: 0SRS0JZ Replacement of Left Hip Joint, Femoral Surface with Synthetic Substitute, Open Approach (ICD-10-PCS; principal; 2023-02-18 07:52)
DX: S72.012A Unspecified intracapsular fracture of left femur, initial encounter for closed fracture (principal); J96.10 Chronic respiratory failure, unspecified whether with hypoxia or hypercapnia; E78.5 Hyperlipidemia, unspecified; I10 Essential (primary) hypertension; Z20.822 Contact with and (suspected) exposure to COVID-19; J44.9 Chronic obstructive pulmonary disease, unspecified; I48.0 Paroxysmal atrial fibrillation; F32.A Depression, unspecified; W18.39XA Other fall on same level, initial encounter; E11.40 Type 2 diabetes mellitus with diabetic neuropathy, unspecified; Z87.891 Personal history of nicotine dependence; Z79.01 Long term (current) use of anticoagulants; Y93.89 Activity, other specified; Y92.89 Other specified places as the place of occurrence of the external cause; Y99.8 Other external cause status; Z99.81 Dependence on supplemental oxygen; Z79.84 Long term (current) use of oral hypoglycemic drugs; D72.829 Elevated white blood cell count, unspecified
CPT/HCPCS: 36415; 70450; 71045; 72170; 73502; 73700; 80053; 81001; 82962; 83036; 85025; 85610; 86850; 86900; 86901; 87081; 87086; 87426; 93005; 93306; 94640; 96365; 96375; 97110; 97116; 97163; 97530; G0378; J0690; J0696; J1815; J1885; J2250; J2405; J2704; J3490